=== PATIENT | male | born 1955 | race Caucasian/White ===

== ENCOUNTER 2024-07-17 14:31 | Emergency (ER) | payer MEDICARE ==
[~2024-07-17] VITALS: Ht 188 cm; Wt 86.2 kg
[2024-07-17] VITALS (7 sets, daily range): BP systolic 130–170; BP diastolic 73–108; PULSE 95–104; RESP 18; TEMP 99; O2SAT 98
[2024-07-17 14:51] LABS: BASOPHIL % 0.1 % (0.2-1.2); EOSINOPHIL # 0.1 10^3/uL (0.0-0.2); EOSINOPHIL % 1.1 % (0.0-5.0); HEMATOCRIT(ML) 41.5 % (37.0-53.0); HEMOGLOBIN 13.9 g/dL (13.9-16.3); IG % 0.5 % (0.00-0.50); LYMPHOCYTES # 0.7 10^3/uL1 (1.0-4.8); LYMPHOCYTES % 7.2 % (24.0-44.0); MEAN CORP HGB 28.7 pg (26-34); MEAN CORP HGB CONCENTRATION 33.5 g/dL (33-36.5); MEAN CORP VOLUME 85.6 fL (78-100); MONOCYTES # 0.8 10^3/uL (0.3-0.8); NEUTROPHIL # 8.1 10^3/uL (1.8-7.7); NEUTROPHILS % 83.1 % (41.0-85.0); RED BLOOD CELL 4.85 10^6/uL (4.50-5.90); RED CELL DISTRIBUTION WIDTH 13.4 % (11.5-14.5); WHITE BLOOD CELL 9.7 10^3/uL (4.5-11.0)
[2024-07-17] MEDS ORDERED: OFIRMEV 1000 MG/100 ML 100 ML IV ONE (15:06)
[2024-07-17] MEDS: OFIRMEV 1000 MG/100 ML 100 ML IV STA (15:09)
[2024-07-17 15:10] LABS: ANION GAP 19.4; BUN/CREATININE RATIO 21.89 (10.0-20.0); CALCIUM 8.4 mg/dL (8.4-10.5); CARBON DIOXIDE 21.1 mmol/L (20.0-32); CREATININE SERUM 3.7 mg/dL (0.59-1.40); EST GFR, NON-AA 16.3 (>/=60); POTASSIUM 4.5 mmol/L (3.6-5.2)
[2024-07-17 15:24] LABS: INR 1.1; PROTHROMBIN PROTIME 11.6 SEC (9.7-11.6)
[2024-07-17 15:25] LABS: BILIRUBIN,URINE NEGATIVE (NEGATIVE); LEUKOCYTE ESTERASE ,URINE NEGATIVE (NEGATIVE); NITRATE,URINE NEGATIVE (NEGATIVE); PH,URINE 5.5 (4.5-8.0); UROBILINOGEN,URINE 0.2 E.U./dL (0.2)
[2024-07-17 15:29] LABS: APPEARANCE,URINE CLEAR; UA COLOR YELLOW
[2024-07-17] MEDS ORDERED: NS 1000ML 1,000 ML ONE (15:34)
[2024-07-17] MEDS: NS 1000ML 1,000 ML STA (15:36)
[2024-07-17] MEDS ORDERED: SUBLIMAZE 100MCG/2ML ONE (17:42)
[2024-07-17] MEDS: SUBLIMAZE 100MCG/2ML IV STA (17:45)
== END 2024-07-17 17:50 | disposition short-term general hospital (02) ==
LOC: ER 14:31
DX: S72.092A Other fracture of head and neck of left femur, initial encounter for closed fracture (principal); R41.82 Altered mental status, unspecified; R74.8 Abnormal levels of other serum enzymes; N17.9 Acute kidney failure, unspecified; N28.89 Other specified disorders of kidney and ureter; M62.82 Rhabdomyolysis; W19.XXXA Unspecified fall, initial encounter; Y93.89 Activity, other specified; Y92.89 Other specified places as the place of occurrence of the external cause; Y99.8 Other external cause status
CPT/HCPCS: 99291; 70450; 96374; 96361; 96375; 99292; 87086; 71045; 72125; 74176; 85025; 36415; 80048; 84484; 82140; 81001; 82550; 85610; 85730; 93005; J7030; J0131; J3010